=== PATIENT | female | born 1980 | race Caucasian/White ===

== ENCOUNTER 2021-01-01 07:04 | Outpatient (CLI) | payer OTHER | END 2021-01-01 07:05 | disposition home or self-care (01) | LOC: CSHLAB 07:04 | PROVIDERS: ATTEND Student in an Organized Health Care Education/Training Program | DX: Z01.812 Encounter for preprocedural laboratory examination (principal); Z20.822 Contact with and (suspected) exposure to COVID-19; N93.9 Abnormal uterine and vaginal bleeding, unspecified | CPT/HCPCS: 80048; 84703; 85027; 86850; 86900; 86901; 87635; U0003; U0005 ==

== ENCOUNTER 2021-01-06 06:53 | Day surgery (SDC) | payer OTHER ==
[2021-01-01 09:24] LABS: BHCG - Serum Negative (NEGATIVE); Pregs Control Background? CLEAR/WHITE (CLR/WHITE); Pregs Control Bar Appear? YES (CONTROL BAR)
[2021-01-01 09:26] LABS: Anion Gap 15 mmol/L (10-20); BUN (Urea Nitrogen) 16 mg/dL (7.0-18.7); Calc. Creatinine Clearance 0 mL/min (70-130); Calcium 9.1 mg/dL (7.8-10.44); Carbon Dioxide 22 mmol/L (22-29); Chloride 107 mmol/L (98-107); Glucose 84 mg/dL (70-105); Potassium 4.6 mmol/L (3.5-5.1); Sodium 139 mmol/L (136-145)
[2021-01-01 09:30] LABS: Hemoglobin 16.5 g/dL (12.0-15.5); Mean Corpuscular HGB CONC 34.7 g/dL (32.0-36.0); Mean Corpuscular Hemoglobin 33.5 pg (27.0-33.0); Mean Corpuscular Volume 96.7 fl (81.6-98.3); Mean Platelet Volume 10.9 fl (7.4-10.4); Platelet Count 275 10x3/uL (150-450); RBC Distribution Width 12.3 % (11.5-14.5); Red Blood Cell (RBC) Count 4.92 10x6/uL (3.90-5.03); White Blood Cell (WBC) Count 8.4 10x3/uL (3.5-10.5)
[2021-01-01 13:43] LABS: SARS-CoV-2 PCR by NAA Not Detected (NotDetected)
[2021-01-05 10:36] VITALS: BMI 33.7
[2021-01-06] MEDS ORDERED: Lidocaine 1% MPF 2 ML VIAL ONE (07:33)
[2021-01-06] MEDS ORDERED: EPINEPHrine 1 MG/ML AMP ONE (08:21)
[2021-01-06] MEDS ORDERED: Bupivacaine PF 0.5% 30 ML VIAL ONE (08:22)
[2021-01-06] MEDS ORDERED: CeleCOXIB 100 MG CAP ONE (08:36)
[2021-01-06] MEDS ORDERED: Gabapentin 300 MG CAP ONE ×2 (08:36→08:40)
[2021-01-06] MEDS ORDERED: Famotidine/PF 20 mg/2ml Vial ONE (08:37)
[2021-01-06] MEDS ORDERED: Midazolam HCl 2 mg/2 ml Vial ONE (08:37)
[2021-01-06] MEDS ORDERED: PROPOFOL 20 ML ONE (09:13)
[2021-01-06] MEDS ORDERED: Fentanyl 100 MCG/2 ML VIAL ONE ×3 (09:14→11:30)
[2021-01-06] MEDS ORDERED: Lidocaine 2% PF 5 ML VIAL ONE (09:15)
[2021-01-06] MEDS ORDERED: Rocuronium Bromide 10 MG/ML (10ML VIAL) ONE (09:15)
[2021-01-06] MEDS ORDERED: Dexamethasone 4 mg/ml Vial ONE (09:16)
[2021-01-06] MEDS ORDERED: Ondansetron PF 4 MG/2 ML Vial ONE (10:30)
[2021-01-06] MEDS ORDERED: Meperidine HCl/PF 25 MG/ML VIAL ONE (11:12)
[2021-01-06] MEDS ORDERED: HYDROcodone/Acetaminophen 5/325 mg Tablet ONE (13:34)
== END 2021-01-06 15:00 | disposition home or self-care (01) ==
LOC: CSHSDC 06:53
PROVIDERS: ATTEND Student in an Organized Health Care Education/Training Program
PROC: 0UT94ZZ Resection of Uterus, Percutaneous Endoscopic Approach (ICD-10-PCS; principal; 2021-01-06)
DX: D25.9 Leiomyoma of uterus, unspecified (principal); N85.7 Hematometra; N83.01 Follicular cyst of right ovary; K21.9 Gastro-esophageal reflux disease without esophagitis; F17.200 Nicotine dependence, unspecified, uncomplicated; Z79.818 Long term (current) use of other agents affecting estrogen receptors and estrogen levels; Z79.899 Other long term (current) drug therapy; Z88.0 Allergy status to penicillin; Z20.822 Contact with and (suspected) exposure to COVID-19; Z90.79 Acquired absence of other genital organ(s)
CPT/HCPCS: 80048; 84703; 85027; 86850; 86900; 86901; 87635; 88307; J0171; J0690; J1100; J2001; J2175; J2250; J2405; J2704; J3010; S0020; S0028; U0003; U0005